=== PATIENT | female | born 2000 | race Two or more races ===

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

== ENCOUNTER 2018-07-17 09:40 | Emergency (ER) | payer MEDICAID ==
[~2018-07-17] VITALS: Ht 154.9 cm; Wt 61.6 kg
[~2018-07-17 09:40] MED LIST: QUET100T4 PO; QUET50TA5 PO; SERT50TA PO; TRAZ150T62 PO
--- NOTE | 2018-07-17 09:59 | NUR ---
PT AMBULATORY TO ROOM 18 W/ C/O NAUSEA STARTED THIS AM AND EMESIS X 2 TODAY. PT ALSO C/O MILD CRAMPING AND YELLOW DC. NO VB. A0. PT RESTING ON GURNEY. NADN. MONITORS APPLIED. SPOKE W/ L&D MAGY ROJAS WHO STATES SHE WILL COME DOWN TO ASSESS PT.
[2018-07-17] MEDS ORDERED: ONDANSETRON 2MG/ML, 2ML ONE (10:17)
[2018-07-17] MEDS ORDERED: FAMOTIDINE 20 MG/2 ML ONE (10:18)
--- NOTE | 2018-07-17 10:29 | NUR ---
Break RN note: US tech at bedside to perform ordered studies.
[2018-07-17] MEDS ORDERED: SODIUM CHLORIDE 0.9% 1,000ML IVBOLUS ONE (10:30)
[2018-07-17] MEDS ORDERED: FAMOTIDINE 20 MG/2 ML IVP ONE (10:30)
[2018-07-17] MEDS ORDERED: ONDANSETRON 2MG/ML, 2ML IVPush ONE (10:30)
[2018-07-17 10:45] LABS: MICROSCOPIC AUTO
[2018-07-17 10:57] LABS: CULTURE INDICATED? YES
[2018-07-17 10:59] LABS: BASOPHILS # (AUTO) 0.03 x10^3/uL (0-0.3); BASOPHILS % (AUTO) 0 % (0-1); EOSINOPHILS # (AUTO) 0.14 x10^3/uL (0-0.8); EOSINOPHILS % (AUTO) 1 % (1-7); LYMPHOCYTES # (AUTO) 1.92 x10^3/uL (1-6.1); LYMPHOCYTES % (AUTO) 19 % (22-44); MD NO; MEAN CORPUSCULAR HEMOGLOBIN 30.4 pg (27.0-34.8); MEAN CORPUSCULAR HGB CONC 33.7 g/dL (32.4-35.8); MEAN PLATELET VOLUME 6.3 fL (7.4-10.4); MONOCYTES # (AUTO) 0.56 x10^3/uL (0-1.4); MONOCYTES % (AUTO) 6 % (2-9); NEUTROPHILS # (AUTO) 7.45 x10^3/uL (1.8-8.0); NEUTROPHILS % (AUTO) 74 % (42-75); PLATELET COUNT 354 x10^3/uL (130-400); RED BLOOD COUNT 3.83 x10^6/uL (3.82-5.3); RED CELL DISTRIBUTION WIDTH 13.7 % (9.6-15.2)
[2018-07-17 11:11] LABS: ALANINE AMINOTRANSFERASE 15 U/L (12-78); ANION GAP 7 mmol/L (5-15); CALCIUM 8.2 mg/dL (8.5-10.1); CHLORIDE 106 mmol/L (98-107); CREATININE 0.48 mg/dL (0.55-1.02)
[2018-07-17 11:29] LABS: ALKALINE PHOSPHATASE 68 U/L (45-117); BILIRUBIN,TOTAL 0.4 mg/dL (0.2-1.0); TOTAL PROTEIN 6.3 g/dL (6.4-8.2)
[2018-07-17] MEDS ORDERED: CEFTRIAXONE PMX 1GM/50ML 50 ML ONE (11:48)
[2018-07-17] MEDS ORDERED: CEFTRIAXONE PMX 1GM/50ML 50 ML IV ONE (12:00)
[2018-07-17] MEDS ORDERED: CEFTRIAXONE 1,000 MG IVPush ONE (12:00)
[2018-07-17 12:56] VITALS: BP 95/60
--- NOTE | 2018-07-17 12:56 | NUR ---
pt resting on gurney. vásquez vss. pt aware of poc for dc after iv rocephin cmp.
== END 2018-07-17 13:13 | disposition home or self-care (01) ==
LOC: ED 10:44
DX: O23.02 Infections of kidney in pregnancy, second trimester (principal); Z3A.21 21 weeks gestation of pregnancy; Z87.891 Personal history of nicotine dependence; R11.2 Nausea with vomiting, unspecified
CPT/HCPCS: 36415; 76815; 80053; 81001; 83690; 84702; 85025; 87086; 96361; 96365; 96375; 99284; J0696; J2405; J3490; J7030